=== PATIENT | male | born 1985 | race Caucasian/White ===

== ENCOUNTER 2021-01-31 12:32 | Outpatient (CLI) | payer MEDICAID | END 2021-01-31 12:33 | disposition critical access hospital (66) | LOC: EMS 12:32 | DX: R56.9 Unspecified convulsions (principal); S09.93XA Unspecified injury of face, initial encounter; W18.39XA Other fall on same level, initial encounter; Y93.89 Activity, other specified; Y92.199 Unspecified place in other specified residential institution as the place of occurrence of the external cause | CPT/HCPCS: A0425; A0429; A0999 ==

== ENCOUNTER 2021-01-31 12:59 | Emergency (ER) | payer MEDICAID ==
[2021-01-31] MEDS ORDERED: levETIRAcetam INJ 500 MG in SODIUM CHLORIDE 0.9% 100ML 100 ML IV STA (13:20)
--- NOTE | 2021-01-31 13:22 | ED Physician Documentation ---
History of Present Illness - Stated complaint Stated Complaint: POST SZ - Chief complaint Chief Complaint: Neuro - Additonal information Additional information: 35-year-old male presents the emergency department for evaluation of facial lacerations and seizure activity. He was at our local detox center in [place] when he had 2 seizures. The first 1 was yesterday when he presented to the detox center and then again this morning when he seized falling down and striking his head on the hard floor. He had been prescribed Keppra yesterday for the seizures but unfortunately had not yet had it filled or administered. The patient reports that he first had a seizure about 1 year ago when he stopped drinking. Patient reports his last drink was Friday afternoon now nearly 48 hours ago. We have been notified by the detox center that they are unable to accept him back as he is too medically complex. Review of Systems Constitutional: denies: Fever, Chills Nose: reports: Rhinorrhea / runny nose Throat: reports: Reviewed and negative Cardiac: reports: Reviewed and negative Respiratory: reports: Reviewed and negative : reports: Reviewed and negative Skin: reports: Laceration (s) Musculoskeletal: reports: Neck pain. denies: Back pain Neurologic: reports: Seizure PD PAST MEDICAL HISTORY - Present Medications Home Medications: Ambulatory Orders Medication Instructions Recorded Confirmed cephALEXin [Keflex] 500 mg PO TID #21 01/31/21 levETIRAcetam [Keppra] 500 mg PO BID #60 01/31/21 - Allergies Allergies/Adverse Reactions: Allergies Allergy/AdvReac Type Severity Reaction Status Date / Time No Known Drug Allergies Allergy Verified 01/31/21 13:17 PD ED PE EXPANDED - General General: Alert, No acute distress - HEENT HEENT: Head injury (Large hematoma over the left eyebrow.), PERRL, Pharyngeal erythema, Lip laceration (Large left lip laceration that extends through the vermilion border and into the internal mucosa.). No: Dental trauma (No trismus. No malocclusion. Dentition appear in good repair without laxity.) - Cardiac Cardiac: Regular Rate, Radial strong equal, Cap refill < 2 sec - Respiratory Respiratory: Clear to ausultation anna. No: Distress, Labored - Abdomen Abdomen: Normal Bowel sounds. No: Tender to palpation - Back Back: Normal exam - Derm Derm: Normal color, Warm and dry, Bruising (Left forehead and eyebrow), Laceration(s) (Left lip) - Neuro Neuro: Alert and Oriented X 3, CNII-XII intact, Normal gait, Normal finger nose - GCS Eye Opening: Spontaneous Motor: Obeys Commands Verbal: Oriented Total: 15 Results - Vitals Vitals: Vital Signs - 24 hr 01/31/21 01/31/21 13:06 14:47 Temperature 36.8 C Heart Rate 93 80 Respiratory 16 18 Rate Blood Pressure 126/86 H 132/99 H O2 Saturation 99 99 Oxygen O2 Source Room air - Labs Labs: Laboratory Tests 01/31/21 01/31/21 13:34 13:34 WBC 7.2 RBC 3.29 L Hgb 10.9 L Hct 32.0 L MCV 97.3 H MCH 33.1 H MCHC 34.1 RDW 13.2 Plt Count 195 MPV 9.9 Neut # (Auto) 6.4 Lymph # (Auto) 0.4 L [place] # (Auto) 0.4 Eos # (Auto) 0.0 Baso # (Auto) 0.0 Absolute Nucleated RBC 0.00 Nucleated RBC % 0.0 Sodium 134 L Potassium 3.9 Chloride 99 L Carbon Dioxide 25 Anion Gap 10.0 BUN 8 Creatinine 0.7 Estimated GFR (MDRD) 130 Glucose 131 H Calcium 9.1 Total Bilirubin 1.0 AST 134 H ALT 96 H Alkaline Phosphatase 72 Total Protein 7.3 Albumin 4.2 Globulin 3.1 Albumin/Globulin Ratio 1.4 Lipase 93 H Ethyl Alcohol < 5.0 - Rads (name of study) head CT Radiology: Final report received (No acute intracranial process.) Cervical C-spine Radiology: Final report received (No cervical spine fractures or dislocation.) Procedures - Laceration (location) left upper lip Length in cm: 6 Wound type: Irregular, Into subcut fat, Into muscle Neurovascular status: Sensory intact Anesthesia: Lidocaine 1% Wound preparation: Chlorhexadine Deep layer closure: Vicryl Skin layer closure: Nylon, Interrupted, Size #-0 - enter number (5), Sutures - enter # (8) Other: Patient tolerated well, No complications, Dressing applied, Tetanus UTD PD MEDICAL DECISION MAKING - ED course Complexity details: reviewed results, d/w patient ED course: 35-year-old male presents the emergency department for evaluation of facial lacerations in the setting of a seizure activity when he was at the detox center. He does have a history of previous seizures but has not been able to fill his prescription for the Keflex. He has not drank for 2 days and does not show any signs of DTs. Head CT and cervical spine were negative. It a very large laceration on his lip that did extend through the vermilion border. It was rinsed thoroughly and approximated with good alignment of this border. He did require internal sutures as well as medial sutures to approximate the tissue. Social work has made a number of phone calls But there does not appear at this time to be an accepting detox center. I have discussed this with the patient and he does not feel that he needs any detox medications. He reported to me that if he was going to have seizures or withdrawal he would have had them by now as he has not drank in 48 hours. He plans to return to [place] where he will work with a sponsor and attempt to get into detox and alcohol rehab as soon as possible. At this time he would like to go home and heal from his facial lacerations. A prescription will be levied for Keflex as well as cephalexin given the extensive suturing required on the lip. Routine wound care and emergent return precautions were discussed. Departure - Departure Disposition: 01 Home, Self Care Clinical Impression: Seizure disorder, History of ETOH abuse Lip laceration Qualifiers: Encounter type: initial encounter Qualified Code(s): S01.511A - Laceration without foreign body of lip, initial encounter Contusion of forehead Qualifiers: Encounter type: initial encounter Qualified Code(s): S00.83XA - Contusion of other part of head, initial encounter Condition: Stable Record reviewed to determine appropriate education?: Yes Follow-Up: TAPAN RAMIREZ MD [Primary Care Provider] - Prescriptions: cephALEXin [Keflex] 500 mg PO TID #21 levETIRAcetam [Keppra] 500 mg PO BID #60 Comments: Melquiades orona were seen in the ER today after a seizure at the detox center. The CT of your head and neck did not show any worrisome findings. To help manage your seizures I would like you to fill the prescription for the Keppra and take twice daily. It is important that you avoid standing water, swimming by herself or driving until cleared by your primary care provider. The sutures in your lip should be removed in about 8 days. There are 5 nonabsorbable and 3 absorbable sutures. I do recommend soft foods over the next 24 to 48 hours. This was a rather deep and involve laceration. It is at higher risk for infection so I would like you to fill the prescription for the Keflex and begin taking three daily as directed Alcohol withdrawal can be deadly and serious. If you feel that you are going into withdrawals do not abstain from alcohol. Please discuss with your primary care provider other options for going into detox and alcohol rehab. I do wish you luck.
[2021-01-31] MEDS ORDERED: levETIRAcetam INJ 1,000 MG in SODIUM CHLORIDE 0.9% 100ML 100 ML IV STA (13:23)
[2021-01-31 13:39] LABS: BASOPHILS % (AUTO) 0.6 %; EOSINOPHILS % (AUTO) 0.1 %; HGB - HEMOGLOBIN 10.9 g/dL (14.0-18.0); LYMPHOCYTES # (AUTO) 0.4 10^3/uL (1.5-3.5); LYMPHOCYTES % (AUTO) 5.4 %; MEAN CORPUSCULAR HEMOGLOBIN 33.1 pg (27.0-31.0); MEAN CORPUSCULAR HGB CONC 34.1 g/dL (32.0-36.0); MEAN CORPUSCULAR VOLUME 97.3 fL (80.0-94.0); MEAN PLATELET VOLUME 9.9 fL (7.4-11.4); MONOCYTES # (AUTO) 0.4 10^3/uL (0.0-1.0); NEUTROPHILS # (AUTO) 6.4 10^3/uL (1.5-6.6); NEUTROPHILS % (AUTO) 88.6 %; PLT - PLATELET COUNT 195 10^3/uL (130-450); RED BLOOD COUNT 3.29 10^6/uL (4.70-6.10); RED CELL DISTRIBUTION WIDTH 13.2 % (12.0-15.0); WHITE BLOOD COUNT 7.2 x10^3/uL (4.8-10.8)
[2021-01-31] MEDS ORDERED: cefTRIAXone 1 GM VIAL IVP STA ×2 (13:45→14:43)
[2021-01-31] MEDS ORDERED: TETANUS/DIPHTHERIA/PERTUSSIS 0.5 ML SYRINGE IM ONE (13:46)
[2021-01-31 13:55] LABS: ALBUMIN 4.2 g/dL (3.2-5.5); ALBUMIN/GLOBULIN RATIO 1.4 (1.0-2.2); ALKALINE PHOSPHATASE 72 IU/L (42-121); ALT ALANINE AMINOTRANSFERASE 96 IU/L (10-60); AST ASPARTATE AMINOTRANSFERASE 134 IU/L (10-42); BUN - BLOOD UREA NITROGEN 8 mg/dL (6-20); CALCIUM 9.1 mg/dL (8.5-10.3); CARBON DIOXIDE - CO2 25 mmol/L (21-32); CHLORIDE 99 mmol/L (101-111); CREATININE 0.7 mg/dL (0.6-1.2); ETOH - ETHANOL < 5.0 mg/dL; GFR - MDRD 130 (>89); GLUCOSE 131 mg/dL (70-100); LIPASE 93 U/L (22-51); POTASSIUM 3.9 mmol/L (3.5-5.0); SODIUM 134 mmol/L (135-145); TOTAL PROTEIN 7.3 g/dL (6.7-8.2)
[2021-01-31] MEDS ORDERED: BUFFERED LIDOCAINE 10 ML SYRINGE SUBQ STA (14:04)
--- NOTE | 2021-01-31 14:10 | CT Report ---
PROCEDURE: HEAD WO INDICATIONS: seizure; large contusion over left eye TECHNIQUE: Noncontrast 4.5 mm thick angled axial sections acquired from the foramen magnum to the vertex. For r adiation dose reduction, the following was used: automated exposure control, adjustment of mA and/or kV according to patient size. COMPARISON: None. FINDINGS: Image quality: Excellent. CSF spaces: Basal cisterns are patent. No extra-axial fluid collections. Ventricles are normal in size and shape. Brain: No midline shift. No intracranial masses or hemorrhage. Yusuf-white matter interface is norm al. Skull and face: Calvarium and visualized facial bones are intact, without suspicious lesions. Left p eriorbital facial soft tissues/left frontal scalp contusion. Sinuses: Mucosal thickening noted in the left frontal recess. The mastoids are clear. IMPRESSION: No acute intracranial disease process. Reviewed by: Shital Vee MD, PhD on 01/31/2021 2:09 PM PDT Approved by: Shital Vee MD, PhD on 01/31/2021 2:09 PM PDT Station ID: [id number]
--- NOTE | 2021-01-31 14:14 | CT Report ---
PROCEDURE: CERVICAL SPINE WO INDICATIONS: seizure; neck pain TECHNIQUE: Noncontrast 3 mm thick sections acquired from the skull base to the T4 level. Sagittal and coronal r eformats were then constructed. For radiation dose reduction, the following was used: automated exp osure control, adjustment of mA and/or kV according to patient size. COMPARISON: None. FINDINGS: Image quality: Excellent. Bones: No fractures or dislocations. Visualized superior ribs are intact. Soft tissues: Prevertebral soft tissues are normal in thickness. No paravertebral hematomas. No ap ical pneumothoraces. IMPRESSION: No fracture. No acute osseous lesion. If there is continued clinical concern for pathology, then MRI should be considered for further evaluation. Reviewed by: Shital Vee MD, PhD on 01/31/2021 2:13 PM PDT Approved by: Shital Vee MD, PhD on 01/31/2021 2:13 PM PDT Station ID: [id number]
[2021-01-31 16:51] VITALS: BP 122/95
== END 2021-01-31 18:39 | disposition home or self-care (01) ==
LOC: ED 12:59
DX: G40.909 Epilepsy, unspecified, not intractable, without status epilepticus (principal); S01.511A Laceration without foreign body of lip, initial encounter; S09.12XA Laceration of muscle and tendon of head, initial encounter; S00.83XA Contusion of other part of head, initial encounter; W18.39XA Other fall on same level, initial encounter; Z23 Encounter for immunization; M54.2 Cervicalgia; F10.10 Alcohol abuse, uncomplicated
CPT/HCPCS: 12002; 13152; 36415; 80053; 80320; 83690; 85025; 90471; 99284

== ENCOUNTER 2021-05-02 13:03 | Outpatient (CLI) | payer MEDICAID | END 2021-05-02 13:04 | disposition critical access hospital (66) | LOC: EMS 13:03 | DX: F10.20 Alcohol dependence, uncomplicated (principal) | CPT/HCPCS: A0425; A0429 ==

== ENCOUNTER 2021-05-02 13:25 | Emergency (ER) | payer MEDICAID ==
[2021-05-02 13:39] VITALS: BP 139/95
[2021-05-02] MEDS ORDERED: chlordiazePOXIDE 25 MG CAPSULE PO STA (14:16)
--- NOTE | 2021-05-02 14:44 | ED Physician Documentation ---
History of Present Illness - Stated complaint Stated Complaint: ETOH WITHDRAWL - Chief complaint Chief Complaint: General - History obtained from History obtained from: Patient, EMS - History of Present Illness Timing: Today Pain level max: 0 Pain level now: 0 - Additonal information Additional information: Patient is a 35-year-old male who states he was accused of trespassing earlier today and was given a choice by the police of going to nursing home or coming to the hospital. He states that he chose to come to the hospital. He states he is a alcoholic who has a detox bed available next week. He states he is not currently in withdrawal but feels like he needs a dose of Librium. He is not suicidal or homicidal. No vomiting. No headache. No chest pain. Nothing makes it better or worse. 59 emergency department visits throughout the state this year Review of Systems Ten Systems: 10 systems reviewed and negative Constitutional: denies: Fever, Chills Ears: denies: Ear pain Nose: denies: Rhinorrhea / runny nose, Congestion Respiratory: denies: Cough GI: denies: Abdominal Pain, Vomiting, Diarrhea Skin: denies: Rash Musculoskeletal: denies: Neck pain, Back pain Neurologic: denies: Headache PD PAST MEDICAL HISTORY - Past Medical History Past Medical History: Yes Cardiovascular: None Respiratory: None Neuro: None Endocrine/Autoimmune: None GI: GERD : None HEENT: None Psych: None Musculoskeletal: None Derm: None - Past Surgical History Past Surgical History: Yes - Present Medications Home Medications: Ambulatory Orders Medication Instructions Recorded Confirmed Doxycycline Hyclate 100 mg PO BID #14 01/31/21 levETIRAcetam [Keppra] 500 mg PO BID #60 01/31/21 - Allergies Allergies/Adverse Reactions: Allergies Allergy/AdvReac Type Severity Reaction Status Date / Time cephalexin Allergy Anaphylaxis Verified 05/02/21 13:34 - Social History Does the pt smoke?: No Smoking Status: Never smoker Does the pt drink ETOH?: No Does the pt have substance abuse?: Yes - Immunizations Immunizations are current?: Yes - POLST Patient has POLST: No PD ED PE NORMAL - Vitals Vital signs reviewed: Yes - General General: Alert and oriented X 3, No acute distress, Well developed/nourished - HEENT HEENT: Moist mucous membranes - Neck Neck: Supple, no meningeal sign - Cardiac Cardiac: RRR, Strong equal pulses - Respiratory Respiratory: No respiratory distress, Clear bilaterally - Abdomen Abdomen: Soft, Non tender, Non distended - Derm Derm: Warm and dry - Extremities Extremities: No edema - Neuro Neuro: Alert and oriented X 3 - Psych Psych: Normal mood, Normal affect Results - Vitals Vitals: Vital Signs - 24 hr 05/02/21 13:34 Temperature 36.6 C Heart Rate 100 Respiratory 18 Rate Blood Pressure 139/95 H O2 Saturation 96 Oxygen O2 Source Room air PD MEDICAL DECISION MAKING - ED course Complexity details: considered differential, d/w patient, d/w it sales consultant ED course: 35-year-old male, longstanding history of alcoholism. Not in active withdrawal here. No tremor. No vomiting. Nothing makes it better or worse. He was given a dose of Librium. He was seen by social work and he has a plan for detox next week. He is not suicidal or homicidal. Tolerating p.o. without difficulty. Patient counseled regarding signs and symptoms for which I believe and urgent re-evaluation would be necessary. Patient with good understanding of and agreement to plan and is comfortable going home at this time This document was made in part using voice recognition software. While efforts are made to proofread this document, sound alike and grammatical errors may occur. Departure - Departure Disposition: 01 Home, Self Care Clinical Impression: Alcoholism Condition: Good Instructions: ED Alcohol Abuse Follow-Up: TAPAN RAMIREZ MD [Primary Care Provider] - Within 1 week Comments: Please follow up with your doctor for further care. Do not drive or operate heavy machinery for 8 hours after librium or while you are under the influence of alcohol. Discharge Date/Time: 05/02/21 15:18
== END 2021-05-02 15:18 | disposition home or self-care (01) ==
LOC: EDUNIT# → ED 13:25
DX: F10.20 Alcohol dependence, uncomplicated (principal)
CPT/HCPCS: 99283; A9270